=== PATIENT | male | born 1970 | race Caucasian/White ===

== ENCOUNTER → 2018-02-16 | Outpatient (CLI) | payer OTHER ==
[2018-02-16 13:20] LABS: APPEARANCE,URINE SLIGHTLY-CLOUDY; BILIRUBIN,URINE NEGATIVE (NEGATIVE); COLOR,URINE YELLOW; GLUCOSE, URINE NEGATIVE (NEGATIVE); KETONES,URINE NEGATIVE (NEGATIVE); LEUKOCYTE ESTERASE,URINE NEGATIVE (NEGATIVE); NITRITE,URINE NEGATIVE (NEGATIVE); PROTEIN,URINE NEGATIVE (NEGATIVE); URINE SPECIFIC GRAVITY 1.024; UROBILINOGEN,URINE NEGATIVE mg/dL (<2.0)
[2018-02-16 13:35] LABS: ABSOLUTE BASOPHILS # (AUTO) 0.1 10^3/uL (0.0-0.2); ABSOLUTE EOSINOPHILS # (AUTO) 0.2 10^3/uL (0.0-0.6); ABSOLUTE LYMPHOCYTES (AUTO) 2.1 10^3/uL (0.5-4.7); ABSOLUTE MONOCYTES (AUTO) 1.1 10^3/uL (0.1-1.4); ABSOLUTE NEUT (AUTO) 7.4 10^3/uL (1.7-8.2); BASOPHILS % (AUTO) 0.6 % (0-2); EOSINOPHILS % (AUTO) 1.5 % (0-6); HEMATOCRIT 49.3 % (37.9-51.0); HEMOGLOBIN 17.1 g/dL (13.5-17.0); LYMPHOCYTES % (AUTO) 19.7 % (13-45); MEAN CORPUSCULAR HEMOGLOBIN 32.3 pg (27.0-33.4); MEAN CORPUSCULAR HGB CONC 34.8 g/dL (32.0-36.0); MEAN CORPUSCULAR VOLUME 93 fl (80-97); PLATELET COUNT 277 10^3/uL (150-450); RED BLOOD COUNT 5.31 10^6/uL (4.35-5.55); RED CELL DISTRIBUTION WIDTH 13.7 % (11.5-14.0); SEGMENTED NEUTROPHILS % (AUTO) 68.2 % (42-78); TOTAL CELLS COUNTED % (AUTO) 100 %; WHITE BLOOD COUNT 10.8 10^3/uL (4.0-10.5)
[2018-02-16 13:55] LABS: ANION GAP 13 (5-19); BLOOD UREA NITROGEN 18 mg/dL (7-20); CALCIUM 9.8 mg/dL (8.4-10.2); CARBON DIOXIDE 28 mmol/L (22-30); CHLORIDE 106 mmol/L (98-107); GLUCOSE 92 mg/dL (75-110); POTASSIUM 4.5 mmol/L (3.6-5.0); SODIUM 147.3 mmol/L (137-145)
--- NOTE | 2018-02-16 14:33 | RADIOLOGY REPORT (SQ) ---
EXAM DESCRIPTION: CHEST PA/LATERAL COMPLETED DATE/TIME: 02/16/2018 1:16 pm REASON FOR STUDY: HYPERTENSION (I10) COMPARISON: None. EXAM PARAMETERS: NUMBER OF VIEWS: two views TECHNIQUE: Digital Frontal and Lateral radiographic views of the chest acquired. RADIATION DOSE: NA LIMITATIONS: none FINDINGS: LUNGS AND PLEURA: No opacities, masses or pneumothorax. No pleural effusion. MEDIASTINUM AND HILAR STRUCTURES: No masses or contour abnormalities. HEART AND VASCULAR STRUCTURES: Heart normal size. No evidence for failure. BONES: Old left rib fracture. HARDWARE: None in the chest. OTHER: No other significant finding. IMPRESSION: NO SIGNIFICANT RADIOGRAPHIC FINDING IN THE CHEST. TECHNICAL DOCUMENTATION: JOB ID: [id number] [employer]- All Rights Reserved Reading location - IP/workstation name: [email or web address]
--- NOTE | 2018-02-16 18:03 | EKG REPORT ---
SEVERITY:- NORMAL ECG - SINUS RHYTHM : Confirmed by: Christiano Madison 16-Feb-2018 18:02:35
== END ==
LOC: OD 12:18
PROVIDERS: ATTEND Orthopaedic Surgery
DX: I10 Essential (primary) hypertension (principal)
CPT/HCPCS: 36415; 71046; 80048; 81001; 85025; 93005; 93010

== ENCOUNTER 2018-03-01 05:28 | Inpatient (IN) | payer OTHER ==
--- NOTE | 2018-02-27 16:12 | Physician Advisory Note ---
Physician Advisor ProgressNote .: [facility] for [facility]. Physician Advisor Statement: Very nice documentation of nonsurgical options tried, ADLs affected, exam. Please document all specific pre-op x-ray/MRI findings present that [facility] looks for: subchondral cysts, subchondral sclerosis, periarticular osteophytes, joint space narrowing, joint subluxation, AVN/osteonecrosis). " - Saying "Tricomparmental degenerative changes" is like saying "he has changes of OA - I said it, so that's that" - that may be so, but if documentation isn't as specific as what [facility] is wanting, they are likely to say it doesn't meet their requirements for payment..... Status: very limited function w/PROMIS score only 28 despite his relatively young age, repeated surgeries on this same knee, multiple meds tried - seems reasonable to expect 2 nights in hospital / Inpatient status for this surgery. Thanks, CK
[~2018-03-01 05:28] MED LIST: BUPIVACAINE INJ/PF LIPOSOME/PF 266 MG/20 ML SDV IJ PRN; CEFAZOLIN INJ 1 GM VIAL IV PRN; IBUPROFEN 800 MG/NS 250 ML IV PRN; LACTATED RINGERS 1000 ML IV PRN; LANSOPRAZOLE 15 MG TAB.RAP.DR PO PRN; LIDOCAINE 0.5% INJ-PF (5 MG/ML) 50 ML SDV SUBCUT PRN; OXYCODONE HCL SR 10 MG TABLET PO PRN; RINGERS SOLUTION,LACTATED 1,000 ML IV PRN; VANCOMYCIN HCL 1,000 MG in DEXTROSE 5%-WATER 250 ML IV PRN
[2018-03-01] MEDS ORDERED: THROMBIN (BOVINE) TOPICAL 20000 UNIT VIAL ONE (06:43)
[2018-03-01] MEDS ORDERED: THROMBIN (BOVINE) 5000 UNIT EPITAXIS KIT ONE (06:43)
[2018-03-01] MEDS ORDERED: BUPIVACAINE INJ/PF LIPOSOME/PF 266 MG/20 ML SDV ONE (06:43)
[2018-03-01] MEDS ORDERED: FENTANYL CITRATE INJ/PF 100 MCG/2 ML AMPUL ONE ×2 (06:54)
[2018-03-01] MEDS ORDERED: MIDAZOLAM 2 MG/2 ML INJ ONE (06:55)
[2018-03-01] MEDS ORDERED: TRANEXAMIC ACID INJ/PF 1,000 MG/10 ML SDV IV ONE ×3 (06:55→10:00)
[2018-03-01] MEDS ORDERED: PROPOFOL INJ 200 MG/20 ML VIAL IV ONE (06:55)
[2018-03-01] MEDS ORDERED: MEPERIDINE HCL/PF INJ 25 MG/1 ML DISP.SYRIN IV PRN (08:17)
[2018-03-01] MEDS ORDERED: PROMETHAZINE HCL INJ 25 MG/1 ML VIAL IV PRN (08:17)
[2018-03-01] MEDS ORDERED: FENTANYL CITRATE INJ/PF 100 MCG/2 ML AMPUL IV PRN ×3 (08:17)
[2018-03-01] MEDS ORDERED: DIPHENHYDRAMINE HCL 50 MG/ML VIAL IV PRN ×2 (08:17→08:43)
--- NOTE | 2018-03-01 08:42 | Operative Report ---
Operative Report DATE OF SURGERY: 03/01/18 PREOPERATIVE DIAGNOSIS: Right knee arthritis OPERATION: Right knee arthroplasty SURGEON: TONYA GALVEZ ANESTHESIA: Spinal TISSUE REMOVED OR ALTERED: Bone to pathology ESTIMATED BLOOD LOSS: 100 PROCEDURE: Implants used: Femur: Erich triathlon size 7 CR femur Tibia: 6 tibia Tibial liner: 9 mm CS insert Patella: 38 mm oval patella Procedure with the patient supine on the operating table the right the limb is prepped and draped in a sterile fashion. The limb was elevated for exsanguination and the tourniquet inflated to 280 torr. A standard midline median parapatellar approach the knee is taken. Access is gained to the femoral canal through the intercondylar notch. Intramedullary alignment instrumentation used to resect 10 mm of distal femur in 5 of valgus. Sizing guide indicated a size 7 femur. Appropriate cutting jig is then used to fashion anterior posterior and chamfer cuts. A trial reduction femurs performed and this is judged to be adequate. Attention was next turned to the tibia. Using an extra medullary alignment system 9 millimeters was resected off the lateral tibial plateau. This is sized to a size 6 tibia. A trial reduction was now performed with a 7 femur and a 6 tibia using a 9 millimeters spacer. It is full extension and central patellofemoral tracking. The articular surface the patella was next resected using an oscillating saw. All trial implants were removed. The pre-existing [place] screws are not interfering with the placement of hardware. Hence a decision was made to leave these in situ. Polymethylmethacrylate is mixed and used to cement the above implants in place. On adequate curing the cement excess cement was removed the tourniquet was deflated hemostasis obtained the wound is then closed in layers using interrupted Vicryl followed by guillaume. A sterile compressive dressing was applied and the patient returned to recovery room in satisfactory condition.
[2018-03-01] MEDS ORDERED: ACETAMINOPHEN 325 MG TABLET PO PRN (08:43)
[2018-03-01] MEDS ORDERED: ONDANSETRON HCL INJ/PF 4 MG/2 ML SDV IV PRN (08:43)
[2018-03-01] MEDS ORDERED: MORPHINE SULFATE 10 MG/ML INJ IV PRN ×2 (08:43)
[2018-03-01] MEDS ORDERED: ONDANSETRON 4 MG TAB.RAPDIS PO PRN (08:43)
[2018-03-01] MEDS ORDERED: OXYCODONE HCL IR 5 MG TABLET PO PRN ×3 (08:43→18:01)
[2018-03-01] MEDS ORDERED: RINGERS SOLUTION,LACTATED 1,000 ML IV PRN (08:43)
[2018-03-01] MEDS ORDERED: MORPHINE SULFATE 10 MG/ML INJ IM PRN (08:43)
[2018-03-01] MEDS ORDERED: MAG HYDROX/AL HYDROX/SIMETH SUSP 30 ML UDCUP PO PRN (08:43)
[2018-03-01] MEDS: FENTANYL CITRATE INJ/PF 100 MCG/2 ML AMPUL ONE ×3 (09:30→09:58)
--- NOTE | 2018-03-01 09:58 | RADIOLOGY REPORT (SQ) ---
EXAM DESCRIPTION: KNEE RIGHT 2 VIEWS COMPLETED DATE/TIME: 03/01/2018 9:29 am REASON FOR STUDY: Post OP -Long Cassette in PACU M17.11 UNILATERAL PRIMARY OSTEOARTHRITIS, RIGHT KN EE COMPARISON: None. NUMBER OF VIEWS: 2 view(s). TECHNIQUE: Digital radiographic images of the right knee post-procedure. LIMITATIONS: None. FINDINGS: BONES: No worrisome or unexpected findings post-procedure. DEVICE: Patient is status post right total knee replacement. The prosthesis appears well seated in t he distal femur and proximal tibia in the projections obtained SOFT TISSUES: No worrisome findings. Expected postoperative soft tissue changes. IMPRESSION: SATISFACTORY POSTOPERATIVE RIGHT KNEE. TECHNICAL DOCUMENTATION: JOB ID: [id number] [employer]- All Rights Reserved Reading location - IP/workstation name: [email or web address]
[2018-03-01] MEDS ORDERED: MULTIVITAMIN TABLET PO SCH (10:00)
[2018-03-01] MEDS ORDERED: ACETAMINOPHEN 1,000 MG/100 ML RTUPB IV ONE (10:10)
[2018-03-01] MEDS: MORPHINE SULFATE 10 MG/ML INJ IV PRN ×3 (10:15→15:58)
[2018-03-01] MEDS ORDERED: MORPHINE SULFATE 10 MG/ML INJ IV ONE (11:00)
[2018-03-01] MEDS ORDERED: ONDANSETRON HCL INJ/PF 4 MG/2 ML SDV ONE (11:40)
[2018-03-01] MEDS ORDERED: LIDOCAINE 2% INJ-PF (20 MG/ML) 2 ML AMPUL ONE (11:40)
[2018-03-01] MEDS: AMLODIPINE BESYLATE 10 MG TABLET PO SCH (12:35)
[2018-03-01] MEDS: OXYCODONE HCL SR 10 MG TABLET PO SCH ×2 (12:35→21:22)
[2018-03-01] MEDS: ASPIRIN 81 MG TABLET, ENT COATED PO SCH (12:35)
[2018-03-01] MEDS: PREGABALIN 75 MG CAPSULE PO SCH ×2 (14:06→21:23)
[2018-03-01] MEDS: IBUPROFEN 800 MG in NORMAL SALINE 250 ML IV SCH (17:13)
[2018-03-01] MEDS ORDERED: CYCLOBENZAPRINE HCL 10 MG TABLET PO PRN (18:02)
[2018-03-01] MEDS: OXYCODONE HCL IR 5 MG TABLET PO PRN ×2 (18:31→22:37)
[2018-03-01] MEDS: SENNOSIDES/DOCUSATE 8.6-50 MG 1 EACH TABLET PO SCH (18:32)
[2018-03-01] MEDS ORDERED: VANCOMYCIN HCL 1,000 MG in DEXTROSE 5%-WATER 250 ML IV ONE (21:00)
[2018-03-01] MEDS: ZOLPIDEM TARTRATE 5 MG TABLET PO PRN (22:38)
[2018-03-02] MEDS: IBUPROFEN 800 MG in NORMAL SALINE 250 ML IV SCH ×3 (03:44→17:11)
[2018-03-02 05:04] LABS: HEMATOCRIT 43.7 % (37.9-51.0); HEMOGLOBIN 15.1 g/dL (13.5-17.0); MEAN CORPUSCULAR HEMOGLOBIN 32.8 pg (27.0-33.4); MEAN CORPUSCULAR HGB CONC 34.5 g/dL (32.0-36.0); MEAN CORPUSCULAR VOLUME 95 fl (80-97); PLATELET COUNT 204 10^3/uL (150-450); RED CELL DISTRIBUTION WIDTH 13.6 % (11.5-14.0); WHITE BLOOD COUNT 11.6 10^3/uL (4.0-10.5)
[2018-03-02] MEDS: LANSOPRAZOLE 15 MG TAB.RAP.DR PO SCH (05:25)
[2018-03-02] MEDS: PREGABALIN 75 MG CAPSULE PO SCH ×3 (05:25→21:08)
[2018-03-02] MEDS: OXYCODONE HCL IR 5 MG TABLET PO PRN ×4 (05:25→22:31)
[2018-03-02 05:32] LABS: ANION GAP 9 (5-19); BLOOD UREA NITROGEN 12 mg/dL (7-20); CALCIUM 9.1 mg/dL (8.4-10.2); CARBON DIOXIDE 25 mmol/L (22-30); CHLORIDE 105 mmol/L (98-107); GLUCOSE 110 mg/dL (75-110); POTASSIUM 4.3 mmol/L (3.6-5.0); SODIUM 139.1 mmol/L (137-145)
--- NOTE | 2018-03-02 07:01 | PDOC PROGRESS REPORT ---
Subjective Progress Note for:: 03/02/18 Reason For Visit: M17.11 UNILATERAL PRIMARY OSTEOARTHRITIS, RIGHT KN 47-year-old white male status post right knee arthroplasty postop day 1 with difficult pain control limiting his participation in physical therapy yesterday. Medications were adjusted last night and anti-inflammatory medication and Lyrica started this morning Physical Exam Vital Signs: Temp Pulse Resp BP Pulse Ox 36.8 C 79 22 H 146/75 H 91 L 03/01/18 23:30 03/01/18 23:30 03/01/18 17:04 03/01/18 23:30 03/01/18 23:30 Intake & Output 02/28/18 03/01/18 03/02/18 06:59 06:59 06:59 Intake Total 1000 1005 Output Total 100 Balance 1000 905 Weight 99.9 kg General appearance: PRESENT: mild distress, severe distress Head exam: PRESENT: normocephalic Respiratory exam: PRESENT: unlabored Cardiovascular exam: PRESENT: RRR Pulses: PRESENT: +1 pedal pulses bilateral Vascular exam: PRESENT: normal capillary refill GI/Abdominal exam: PRESENT: soft Rectal exam: PRESENT: deferred Extremities exam: PRESENT: other - Right knee dressing clean dry and intact. Distal neurovascular examination is intact. Neurological exam: PRESENT: alert, awake, oriented to person, oriented to place , oriented to time, oriented to situation. ABSENT: motor sensory deficit Psychiatric exam: PRESENT: appropriate affect, normal mood. ABSENT: homicidal ideation, suicidal ideation Skin exam: PRESENT: dry, intact, warm. ABSENT: cyanosis, rash Results Laboratory Results: 03/02/18 04:11 03/02/18 04:11 03/02/18 03/02/18 04:11 04:11 WBC 11.6 H RBC 4.60 Hgb 15.1 Hct 43.7 MCV 95 MCH 32.8 MCHC 34.5 RDW 13.6 Plt Count 204 Sodium 139.1 Potassium 4.3 Chloride 105 Carbon Dioxide 25 Anion Gap 9 BUN 12 Creatinine 1.06 Est GFR ( Amer) > 60 Est GFR (Non-Af Amer) > 60 Glucose 110 Calcium 9.1 Impressions: Knee X-Ray 03/01/18 08:44 IMPRESSION: SATISFACTORY POSTOPERATIVE RIGHT KNEE. Status: Imported from PACS Assessment & Plan - Diagnosis (1) Arthritis of right knee Is this a current diagnosis for this admission?: Yes Plan: Analgesic medication has been adjusted. Patient to participate with physical therapy on a range of motion, strengthening, and weightbearing as tolerated ambulation program. Anticipate discharge home tomorrow with home health services and DME - Time Time Spent with patient: 15-24 minutes Anticipated discharge: Home with Homehealth Within: within 24 hours
[2018-03-02] MEDS ORDERED: PREGABALIN 75 MG CAPSULE PO SCH (10:00)
[2018-03-02] MEDS: ASPIRIN 81 MG TABLET, ENT COATED PO SCH (10:33)
[2018-03-02] MEDS: AMLODIPINE BESYLATE 10 MG TABLET PO SCH (10:34)
[2018-03-02] MEDS: FLUOXETINE HCL 20 MG CAPSULE PO SCH (10:34)
[2018-03-02] MEDS: PRENATAL VITAMIN W DHA CAPSULE PO SCH (10:34)
[2018-03-02] MEDS: SENNOSIDES/DOCUSATE 8.6-50 MG 1 EACH TABLET PO SCH ×2 (10:35→17:12)
[2018-03-02] MEDS: OXYCODONE HCL SR 10 MG TABLET PO SCH ×2 (12:05→21:08)
[2018-03-02] MEDS ORDERED: IBUPROFEN 800 MG in NORMAL SALINE 250 ML IV SCH (14:00)
[2018-03-02] MEDS: ZOLPIDEM TARTRATE 5 MG TABLET PO PRN (22:31)
[2018-03-03] MEDS: IBUPROFEN 800 MG in NORMAL SALINE 250 ML IV SCH ×2 (01:59→09:29)
[2018-03-03] MEDS: PREGABALIN 75 MG CAPSULE PO SCH (05:42)
[2018-03-03] MEDS: OXYCODONE HCL IR 5 MG TABLET PO PRN ×2 (05:42→09:29)
[2018-03-03] MEDS: LANSOPRAZOLE 15 MG TAB.RAP.DR PO SCH (05:42)
--- NOTE | 2018-03-03 05:51 | PDOC DISCHARGE SUMMARY ---
General - Admit/Disc Date/PCP Admission Date/Primary Care Provider: 03/01/18 05:28 DUTCH MACK, Discharge Date: 03/03/18 - Discharge Diagnosis (1) Arthritis of right knee Is this a current diagnosis for this admission?: Yes - Additional Information Resuscitation Status: Full Code Discharge Diet: As Tolerated, Regular Discharge Activity: Balance Activity w/Rest, No Driving, No tub bath Home Medications: Amlodipine Besylate 5 mg PO DAILY 02/23/18 Fluoxetine HCl 20 mg PO DAILY 02/23/18 Multivitamin [Multiple Vitamins] 1 tab PO DAILY 02/23/18 Omeprazole 20 mg PO DAILY 02/23/18 Pregabalin [Lyrica] 150 mg PO TID 02/23/18 Tapentadol HCl [Nucynta] 100 mg PO ASDIR PRN 02/23/18 Aspirin [Ecotrin 81 mg EC Tablet] 81 mg PO DAILY tabec 03/03/18 Oxycodone HCl [Oxy-Ir 5 mg Tablet] 10 mg PO Q4HP PRN tablet 03/03/18 History of Present Illness History of Present Illness: DEIRDRE CASTILLO is a 47 year old male Patient is a 47-year-old white male status post several right knee surgeries including an ACL reconstruction who developed posttraumatic arthritis of the knee. He is now admitted for an elective right knee arthroplasty. Hospital Course Hospital Course: Patient is admitted through the operating room where he undergoes uncomplicated right knee arthroplasty. Is returned to floor in satisfactory condition. Patient is long-acting spinal and does not receive physical therapy in the day of surgery. Postoperative analgesia is problematic and patient's medications were adjusted several times to provide better pain relief. The patient subsequent makes excellent progress with physical therapy. Compressive dressing is removed on postop day 2. Underlying op site dressing is clean dry and intact with a small amount of soft tissue swelling Physical Exam Vital Signs: Temp Pulse Resp BP Pulse Ox 36.9 C 78 18 130/67 H 96 03/02/18 20:00 03/02/18 20:00 03/02/18 20:00 03/02/18 20:00 03/02/18 20:00 Intake & Output 03/01/18 03/02/18 03/03/18 06:59 06:59 06:59 Intake Total 1000 1005 1048 Output Total 100 2000 Balance 1000 905 -952 Weight 99.9 kg General appearance: PRESENT: no acute distress, mild distress Head exam: PRESENT: normocephalic Respiratory exam: PRESENT: unlabored Cardiovascular exam: PRESENT: RRR Pulses: PRESENT: +1 pedal pulses bilateral Vascular exam: PRESENT: normal capillary refill GI/Abdominal exam: PRESENT: soft Rectal exam: PRESENT: deferred Extremities exam: PRESENT: other - Right lower extremity knee dressing is clean dry and intact. Small amount of pedal edema. Distal neurovascular examination is intact. Neurological exam: PRESENT: alert, awake, oriented to person, oriented to place , oriented to time, oriented to situation. ABSENT: motor sensory deficit Psychiatric exam: PRESENT: appropriate affect, normal mood. ABSENT: homicidal ideation, suicidal ideation Skin exam: PRESENT: dry, intact, warm. ABSENT: cyanosis, rash Results Laboratory Results: 03/02/18 04:11 03/02/18 04:11 Impressions: Knee X-Ray 03/01/18 08:44 IMPRESSION: SATISFACTORY POSTOPERATIVE RIGHT KNEE. Status: Imported from PACS Qualifiers - * PATIENT BEING DISCHARGED WITH ANY OF THE FOLLOWING DIAGNOSIS: No VTE patient discharged on overlapping Therapy?: Yes Plan Discharge Plan: Patient be discharged home with home health nursing, home health physical therapy, and DME. Follow-up with Dr. Granado and [facility] for surgery in 2 weeks for staple removal. Time Spent: Less than 30 Minutes
[2018-03-03 06:26] LABS: HEMATOCRIT 41.2 % (37.9-51.0); HEMOGLOBIN 14.2 g/dL (13.5-17.0); MEAN CORPUSCULAR HEMOGLOBIN 32.8 pg (27.0-33.4); MEAN CORPUSCULAR HGB CONC 34.5 g/dL (32.0-36.0); MEAN CORPUSCULAR VOLUME 95 fl (80-97); PLATELET COUNT 182 10^3/uL (150-450); RED BLOOD COUNT 4.33 10^6/uL (4.35-5.55); RED CELL DISTRIBUTION WIDTH 13.1 % (11.5-14.0); WHITE BLOOD COUNT 11.7 10^3/uL (4.0-10.5)
[2018-03-03] MEDS: AMLODIPINE BESYLATE 10 MG TABLET PO SCH (09:29)
[2018-03-03] MEDS: ASPIRIN 81 MG TABLET, ENT COATED PO SCH (09:29)
[2018-03-03] MEDS: SENNOSIDES/DOCUSATE 8.6-50 MG 1 EACH TABLET PO SCH (09:29)
[2018-03-03] MEDS: FLUOXETINE HCL 20 MG CAPSULE PO SCH (09:29)
[2018-03-03] MEDS: PRENATAL VITAMIN W DHA CAPSULE PO SCH (09:29)
[2018-03-03 12:32] VITALS: BP 108/62
== END 2018-03-03 14:04 | disposition home health service (06) | DRG 470 ==
LOC: INOR 05:28 → 4S 11:42
PROVIDERS: ADMIT Orthopaedic Surgery; ATTEND Orthopaedic Surgery
PROC: 0SRC0J9 Replacement of Right Knee Joint with Synthetic Substitute, Cemented, Open Approach (ICD-10-PCS; principal; 2018-03-01 07:30)
DX: M17.11 Unilateral primary osteoarthritis, right knee (principal); I10 Essential (primary) hypertension; K21.9 Gastro-esophageal reflux disease without esophagitis; M19.90 Unspecified osteoarthritis, unspecified site; F17.210 Nicotine dependence, cigarettes, uncomplicated; Z85.53 Personal history of malignant neoplasm of renal pelvis; Z90.5 Acquired absence of kidney
CPT/HCPCS: 01402; 36415; 80048; 85027; 88304; 88311; 94799; C2625; C9290; J0131; J0690; J1741; J2250; J2270; J2405; J2704; J3010; J3370; J3490; J7050; J7060